=== PATIENT | female | born 1935 | race Caucasian/White ===

== ENCOUNTER 2016-10-26 11:18 | Inpatient (IN) | payer OTHER, MEDICARE ==
[2016-10-26] MEDS ORDERED: NS 1,000 ML IV ONE (12:01)
--- NOTE | 2016-10-26 12:08 | CPEKG ---
Heart Rate: 168 RR Interval: 357 QRSD Interval: 112 QT Interval: 272 QTC Interval: 455 QRS [place]ber: 15 T Wave Melber: 197 EKG Severity - ABNORMAL ECG - EKG Impression: ATRIAL FIBRILLATION WITH RAPID V-RATE EKG Impression: NONSPECIFIC INTRAVENTRICULAR CONDUCTION DELAY EKG Impression: ANTERIOR INFARCT, AGE INDETERMINATE Electronically Signed By: Pavan Reyes 26-Oct-2016 15:51:41
[2016-10-26 12:21] LABS: % IMMATURE GRANULYOCYTES 0.3 % (0.0-1.1); ABSOLUTE IMMATURE GRANULOCYTES 0.02 10^3/uL (0.00-0.10); ADD DIFF? NO; ADD MORPH? NO; ADD SCAN? NO; ATYPICAL LYMPHOCYTE FLAG 0 (0-99); FRAGMENT RBC FLAG 0 (0-99); HEMATOCRIT 41.7 % (38.0-47.0); HEMOGLOBIN 13.9 g/dL (12.6-16.3); LEFT SHIFT FLG 0 (0-99); LIPEMIA HEMOLYSIS FLAG 80 (0-99); MEAN CELL HEMOGLOBIN 31.1 pg (27.9-34.1); MEAN CELL HEMOGLOBIN CONCENTR. 33.3 g/dL (32.4-36.7); MEAN CELL VOLUME 93.3 fL (81.5-99.8); PLATELET CLUMPS FLAG 0 (0-99); PLATELET COUNT 226 10^3/uL (150-400); RED BLOOD CELL COUNT 4.47 10^6/uL (4.18-5.33); RED CELL DISTRIBUTION WIDTH 15.8 % (11.5-15.2)
--- NOTE | 2016-10-26 12:21 | EDPHY ---
HPI/HX/ROS/PE/MDM Narrative: Chief complaint: Shortness of breath HPI: 81-year-old female with a history of diabetes he has been having episodes of shortness of breath intermittently for the last 5 weeks. She had an episode before that last about 4 days. At that time she noted that her blood sugar has been up to about 200 for about 2 days. Two weeks ago she was seen by her primary care physician in who found no pertinent findings. She is presenting today with worsening shortness of breath on exertion and fatigue for the last 3-4 days. Has had a mild nonproductive cough. No chest pain. No fevers or chills. No nausea or vomiting. No abdominal pain. The does not have a history of the same. States she is not having had any cardiac problems. ROS: 10 point Review of Systems is negative except as noted in the HPI. Past medical history: Diabetes, hypertension Medications: Tradjenta, glipizide, Lotrel, Lipitor, vitamin-D Allergies: No known drug allergies Physical exam: Gen: Awake, Alert, No Distress HEENT: Nose: no rhinorrhea Eyes: PERRLA, EOMI Mouth: Moist mucosa Neck: Supple, no JVD Chest: nontender, lungs clear to auscultation, diminished at the bases Heart: Tachycardic, irregularly irregular Abd: Soft, non-tender, no guarding Back: no CVA tenderness, no midline tenderness Ext: no edema, non-tender Skin: no rash Neuro: CN II-XII intact, Sensation grossly intact, Strength 5/5 in bilateral upper and lower extremities ED Course: EC atrial fibrillation with a rapid ventricular response with a rate of 168. Respiratory course. 81-year-old female with a history of diabetes no coronary disease presenting with 3 days of shortness of breath. She is tachycardic to the 1 50s to 170s and irregular here consistent with atrial fibrillation with rapid ventricular response. ECG confirms this. She has no gross findings of acute heart failure at this time. Will check electrolytes, will give IV diltiazem bolus followed by drip. She will certainly require admission to PCU for rate control and further evaluation. Electrolytes show mild elevation in BUN and creatinine, troponin is 0.03. CBC is normal. Patient's heart rate is improved with diltiazem bolus. Blood sugars 200. I have discussed with Dr. Verde, hospitalist. They will plan to admit to the PCU for further evaluation. Patient has not yet been able to provide a urinalysis which is pending at the time of admission. MDM: 81-year-old female presenting in atrial fibrillation with a rapid ventricular response. Patient to be admitted to the PCU for rate control and further evaluation. I am awaiting urinalysis at this time. She has some mild renal insufficiency, hyperglycemic 200. Troponin is 0.03 at this time. - Data Points Laboratory Results: 10/26/16 12:09 WBC Pending RBC Pending Hgb Pending Hct Pending MCV Pending MCH Pending MCHC Pending RDW Pending Plt Count Pending MPV Pending Neut % (Auto) Pending Lymph % (Auto) Pending [place] % (Auto) Pending Eos % (Auto) Pending Baso % (Auto) Pending Nucleat RBC Rel Count Pending Absolute Neuts (auto) Pending Absolute Lymphs (auto) Pending Absolute Monos (auto) Pending Absolute Eos (auto) Pending Absolute Basos (auto) Pending Absolute Nucleated RBC Pending Immature Gran % Pending Immature Gran # Pending Sodium Pending Potassium Pending Chloride Pending Carbon Dioxide Pending Anion Gap Pending BUN Pending Creatinine Pending Estimated GFR Pending Glucose Pending Calcium Pending Troponin I Pending Medications Given: Discontinued Medications Sodium Chloride (Ns) 1,000 mls @ 0 mls/hr IV ONCE ONE PRN Reason: Wide Open Stop: 10/26/16 12:02 Last Admin: 10/26/16 12:17 Dose: 1,000 mls General Time Seen by Provider: 10/26/16 12:13 Initial Vital Signs: Initial Vital Signs Temperature (C) 36.3 C 10/26/16 11:21 Heart Rate 136 H 10/26/16 11:21 Respiratory Rate 16 10/26/16 11:21 Blood Pressure 160/112 H 10/26/16 11:21 O2 Sat (%) 94 10/26/16 11:21 O2 Delivery Mode Nasal Cannula O2 (L/minute) 2 Allergies/Adverse Reactions: No Known Allergies Allergy (Verified 03/19/12 12:39) Home Medications: Medication Instructions Recorded AMLODIPINE BESYLATE/BENAZEPRIL 1 each PO HS 03/19/12 [Lotrel 10-20 mg] Atorvastatin Calcium [Lipitor 40 40 mg PO HS 03/19/12 mg (RX)] Cholecalciferol (Vitamin D3) 5,000 unit PO HS 03/19/12 [Vitamin D3] Ibuprofen [Advil] 400 mg PO HS 03/19/12 C/E/Zn/Cu/OM3/DHA/EPA/LUT/ZEAX 1 each PO HS 10/26/16 [Preservision Areds 2 Softgel] Linagliptin [Tradjenta] 5 mg PO HS 10/26/16 glipiZIDE [Glipizide] 5 mg PO BID 10/26/16 Departure - Departure Disposition: [facility] Acute Clinical Impression: Atrial fibrillation with rapid ventricular response Condition: Fair
[2016-10-26] MEDS ORDERED: DILTIAZEM 25 MG/5 ML VIAL IVP ONE ×2 (12:36→12:41)
[2016-10-26] MEDS ORDERED: DILTIAZEM 125 MG in D5W 125 ML IV ONE (12:41)
[2016-10-26 12:54] LABS: ANION GAP 18 mEq/L (8-16); CALCIUM 9.6 mg/dL (8.5-10.4); CARBON DIOXIDE 16 mEq/l (22-31); CHLORIDE 107 mEq/L (97-110); CREATININE 1.2 mg/dL (0.6-1.0); GLOMERULAR FILTRATION RATE 43; GLUCOSE 213 mg/dL (70-100); POTASSIUM 4.1 mEq/L (3.5-5.2); SODIUM 141 mEq/L (134-144)
[2016-10-26 13:05] LABS: TROPONIN I 0.034 ng/mL (0-0.034)
--- NOTE | 2016-10-26 13:35 | DX ---
PA and Lateral Chest Clinical Indications: Shortness of breath and rapid heart rate in an 81-year-old female. Comparison: None. Findings: No focal pulmonary consolidation is identified. Peribronchial thickening is noted.. There i s hyperexpansion seen with flattening of the hemidiaphragms noted. The heart is enlarged and there is mild pulmonary venous redistribution. A moderate right pleural eff usion is suspected and there is a probable minimal left pleural effusion. Impression: 1. Suspect congestive heart failure with associated pleural effusion, right greater than left 2. Hyperexpansion and peribronchial thickening suggest airways disease, possible chronic bronchitis..
[2016-10-26 14:01] LABS: COLOR YELLOW; LEUKOCYTE ESTERASE,URINE 2+ (NEGATIVE); NITRITE,URINE POSITIVE (NEGATIVE)
[2016-10-26 14:20] LABS: BACTERIA 4+ /hpf (NONE SEEN); MUCUS TRACE /lpf (NONE-1+); WBC,URINE 50-182 /hpf (0-3)
[2016-10-26] MEDS ORDERED: ONDANSETRON DISINTEGRATING 4 MG TAB PO PRN (14:26)
[2016-10-26] MEDS ORDERED: ONDANSETRON 4 MG/2 ML VIAL IVP PRN (14:26)
[2016-10-26] MEDS ORDERED: ACETAMINOPHEN 325 MG TAB PO PRN (14:26)
[2016-10-26] MEDS ORDERED: DILTIAZEM 125 MG in D5W 125 ML IV SCH (15:00)
--- NOTE | 2016-10-26 16:13 | GHP ---
[f rep st] HISTORY AND PHYSICAL DATE OF ADMISSION: 10/26/2016 CHIEF COMPLAINT: Shortness of breath. HISTORY OF PRESENT ILLNESS: An 81-year-old female with a history of hypertension and diabetes, who p resents with progressing shortness of breath per her report over the course of the preceding 3 weeks. Patient describes having an upper respiratory infection with a nonproductive cough before Agata time. The cough has persisted. She was evaluated in the outpatient setting and thought to have a re solving URI. Patient reports then that her shortness of breath, particularly with exertion and when l diamond flat, got markedly worse and therefore, presented to the emergency department for evaluation. I n the ED, the patient is denying any active chest pain or palpitations. Reports slight improvement i n her shortness of breath. Denies any nausea, vomiting, diarrhea, dysuria, hematuria, lower extremit y edema, new rashes. Does describe a silverio dry scratchy throat that she has experienced with this u pper respiratory infection. Denies any specific fevers or chills. PAST MEDICAL HISTORY: 1. Hypertension. 2. Diabetes mellitus. 3. Hyperlipidemia. SOCIAL HISTORY: Patient is , lives with her , originally from [facility]. Does not s moke does. Does no longer drink alcohol. Does not use illicit drugs. FAMILY HISTORY: Unknown. The patient was cared for by a surrogate provider. She does not know her parents' history. ADVANCED DIRECTIVES: Patient is full cor, full tube. Her would be her medical decision-make r. REVIEW OF SYSTEMS: A 10-point review of systems is negative with the exception of that reported in t he HPI. PHYSICAL EXAMINATION: VITAL SIGNS: Blood pressure 139/93, heart rate 178 in the emergency departmen t, respiratory rate 16, 91% on 2 L, 36.7. GENERAL: This is a very pleasant-appearing elderly female , lying comfortably in bed. HEENT: Notable for moist mucous membranes. Eyes negative for any icter us. CARDIAC: Patient's is irregularly irregular and tachycardic. PULMONARY: Patient has diminishe d breath sounds on the right, otherwise minimal rales at bilateral bases. Clear to auscultation supe riorly. GASTROINTESTINAL: Positive bowel sounds. Abdomen is soft and nontender to palpation in all 4 quadrants. MUSCULOSKELETAL: Negative for any lower extremity edema. SKIN: Negative for any jakob hes. NEUROLOGIC: Patient is alert and oriented x3. PSYCHIATRIC: She is pleasant and cooperative o n interview and examination. DATA: White count is 7.1, hematocrit 41.7, platelets of 226. Creatinine 1.2, baseline is 1.0. BUN is 27, blood glucose of 213. Troponin 0.034. EKG, which I personally reviewed and interpreted, shows atrial fibrillation with rates in the 150s wi thout acute changes. ASSESSMENT AND PLAN: 1. This is an 81-year-old female presenting with atrial fibrillation with acute rapid ventricular re sponse. The patient's heart rates are in the 170s. Blood pressures are stable. The patient has bee n initiated on a diltiazem drip. Have consulted Cardiology, Dr. Yeager, ordered a transthoracic ech ocardiogram. Based on the patient's laboratories, I am going to make sure she has received IV fluids . If not, give her a small bolus. Will hold her normal home antihypertensives while on the diltiaze m drip. Have initiated the conversation about the patient's elevated [id number] score and her cand idacy for full-dose anticoagulation. Will not commit to a treatment choice this evening, and suspect Dr. Yeager will be consulted and interested in intervening on this patient. 2. Diabetes. Can continue patient's glipizide and cover with sliding scale insulin as needed. 3. Hyperlipidemia. Patient is not actively on medication treatment. Can check fasting lipids in th e morning. 4. Prophylaxis. Lovenox prophylaxis. 5. Diet. Cardiac. DISPOSITION: I expect greater than 2-midnights as the patient is presenting with atrial fibrillation with RVR, new hypoxia, likely requiring intervention. Will follow her progress on a diltiazem drip. I discussed the case with Dr. Yeager. He will consult this afternoon. /[id number]/MODL
--- NOTE | 2016-10-26 17:28 | ECHO ---
[id number] + + [address] : : [place] [address] : : [phone] + + Adult Echocardiographic Report + --------+ :Name: Cookie CHAO Date: 10/26/2016 03:19 PM : : Hospital Admission Number: [id number] Locat ion: 220: :: 1935 Gender: Female Height: 65 in : :Age: 81 yrs Race: WH Weight: 193 l b : :Reason For Study: SOB and palpitations : : BSA: 1.9 mete rs2 : :History: No previous : + --------+ MMode/2D Measurements & Calculations IVSd: 1.4 cm LVIDd: 3.6 cm FS: 49.3 % LVOT diam: 1.4 cm LVPWd: 1.5 cm LVIDs: 1.8 cm EDV(Teich): 54.6 ml LVOT area: 1.5 cm2 ESV(Teich): 10.1 ml EF(Teich): 81.5 % Normal Measurement Values: + + :LVIDd (3.5-5.7cm) IVSd (0.6-1.1cm) LVPWd (0.6-1.1cm) Aortic Root (2.0-3.7cm)Left Atrium (1.5-4.0cm): :LV Vol(d) (76-115ml) LV Vol(s) (29-48ml) Ejec Fraction (50-65%)PV Donald (0.6- 1.2m/s) TV Donald (0.4-1.0m/s) : :MV E Donald (0.8-1.0m/s)MV A Donald (0.3-1.0m/s)LVOT Donald (0.7-1.2m/s) Asc Ao Donald ( 0.9-1.8m/s) : + + Doppler Measurements & Calculations MV E max donald: MV V2 mean: Ao V2 max: LV V1 max: 164.7 cm/sec 119.8 cm/sec 111.0 cm/sec 66.7 cm/sec MV dec time: MV mean PG: Ao max PG: LV V1 max P.16 sec 6.2 mmHg 4.9 mmHg 1.8 mmHg MV V2 VTI: 25.2 cm Ao mean PG: LV V1 mean PG: MVA(VTI): 0.67 cm2 4.6 mmHg 0.83 mmHg Ao V2 mean: LV V1 mean: 101.0 cm/sec 40.8 cm/sec Ao V2 VTI: 31.0 cmLV V1 VTI: 11.3 cm GRACIE(I,D): 0.55 cm2 GRACIE(V,D): 0.90 cm2 MR max donald: SV(LVOT): 17.0 ml PA V2 max: PI end-d donald: 421.3 cm/sec 93.4 cm/sec 83.6 cm/sec MR max PG: PA max P.0 mmHg 3.5 mmHg TR max donald: 323.4 cm/sec TR max P.8 mmHg RAP systole: 15.0 mmHg RVSP(TR): 56.8 mmHg Left Ventricle The left ventricle is normal in size. There is mild to moderate concentric left ventricular hypertrophy. Ejection Fraction = 50-55%. Regional wall motion abnormalities cannot be excluded due to limited visualization. Possible christine-septal hypokinesis. Right Ventricle The right ventricle is not well visualized. The right ventricular systolic function is normal. Atria The left atrium is moderately dilated. The Left Atrial Volume is 42.1 ml/m2. Right atrium not well visualized. Mitral Valve There is moderate to severe mitral annular calcification. There is no mitral valve stenosis. There is mild mitral regurgitation. Tricuspid Valve The tricuspid valve is normal in structure and function. There is no tricuspid stenosis. There is moderate tricuspid regurgitation. Right ventricular systolic pressure is 55-60mmHg. Aortic Valve There is mild to moderate aortic valve calcification. The aortic valve is trileaflet. There is no aortic stenosis. There is no aortic insufficiency. Pulmonic Valve The pulmonic valve is not well visualized. There is no pulmonic valvular stenosis. Mild pulmonic valvular regurgitation. Great Vessels The aortic root is normal size. Pericardium/Pleural There is a fat pad seen. Conclusion A complete two-dimensional transthoracic echocardiogram was performed (2D, M-mode, Doppler and color flow Doppler). The study was technically difficult. The left ventricle is normal in size. Ejection Fraction = 50-55%. Regional wall motion abnormalities cannot be excluded due to limited visualization. The right ventricle is not well visualized. The left atrium is moderately dilated. The Left Atrial Volume is 42.1 ml/m2. Right atrium not well visualized. There is moderate to severe mitral annular calcification. There is mild mitral regurgitation. There is moderate tricuspid regurgitation. Mild pulmonic valvular regurgitation. There is mild to moderate concentric left ventricular hypertrophy. There is mild to moderate aortic valve calcification. Right ventricular systolic pressure is 55-60mmHg. Possible christine-septal hypokinesis. Final Reading Physician: Richar Fletcher signed on 10/26/2016 05:27 PM Ordering Physician: Marian Euceda Referring Physician: Yamel Lebron Performed By: Antonia Mendoza
[2016-10-26] MEDS: CHOLECALCIFEROL VIT D3 1,000 UNITS TAB PO SCH (20:44)
[2016-10-26] MEDS: PRESERVISION AREDS2 FORMULA EYE VIT 1 EACH PO SCH (20:44)
[2016-10-26] MEDS: ATORVASTATIN CALCIUM 40 MG TAB PO SCH (20:44)
[2016-10-26] MEDS: AMLODIPINE BESYLATE 5/BENAZEPRIL 10MG 1 EACH CAP PO SCH (20:44)
[2016-10-26] MEDS: glipiZIDE 5 MG TAB PO SCH (20:45)
[2016-10-26] MEDS ORDERED: NON-FORMULARY NEW DRUG (Cholecalciferol (Vitamin D3) [Vitamin D3] 5,000 UNIT) PO SCH (21:00)
[2016-10-26] MEDS ORDERED: ENOXAPARIN 80 MG/0.8 ML SYR SC ONE (21:00)
[2016-10-26] MEDS ORDERED: NON-FORMULARY NEW DRUG (Amlodipine Besylate/Benazepril [Lotrel 10-20 Mg] 1 EACH) PO SCH (21:00)
[2016-10-27] MEDS ORDERED: FUROSEMIDE 20 MG/2 ML VIAL IVP ONE (04:39)
[2016-10-27 05:32] LABS: % IMMATURE GRANULYOCYTES 0.4 % (0.0-1.1); ABSOLUTE IMMATURE GRANULOCYTES 0.03 10^3/uL (0.00-0.10); ADD DIFF? NO; ADD MORPH? NO; ADD SCAN? NO; ATYPICAL LYMPHOCYTE FLAG 10 (0-99); FRAGMENT RBC FLAG 0 (0-99); HEMATOCRIT 35.6 % (38.0-47.0); HEMOGLOBIN 11.7 g/dL (12.6-16.3); LEFT SHIFT FLG 0 (0-99); LIPEMIA HEMOLYSIS FLAG 80 (0-99); MEAN CELL HEMOGLOBIN 31.2 pg (27.9-34.1); MEAN CELL HEMOGLOBIN CONCENTR. 32.9 g/dL (32.4-36.7); MEAN CELL VOLUME 94.9 fL (81.5-99.8); MEAN PLATELET VOLUME 10.9 fL (8.7-11.7); PLATELET CLUMPS FLAG 0 (0-99); PLATELET COUNT 180 10^3/uL (150-400); RED BLOOD CELL COUNT 3.75 10^6/uL (4.18-5.33); RED CELL DISTRIBUTION WIDTH 15.6 % (11.5-15.2)
[2016-10-27 05:52] LABS: ANION GAP 12 mEq/L (8-16); CALCIUM 8.8 mg/dL (8.5-10.4); CARBON DIOXIDE 18 mEq/l (22-31); CHLORIDE 112 mEq/L (97-110); CREATININE 1.1 mg/dL (0.6-1.0); GLOMERULAR FILTRATION RATE 48; GLUCOSE 98 mg/dL (70-100); POTASSIUM 3.2 mEq/L (3.5-5.2); SODIUM 142 mEq/L (134-144)
[2016-10-27 05:55] LABS: TROPONIN I 0.041 ng/mL (0-0.034)
[2016-10-27] MEDS ORDERED: ENOXAPARIN 30 MG/0.3 ML SYR SC SCH (09:00)
--- NOTE | 2016-10-27 10:03 | PDCARCONS ---
Cardiology Consult Reason for Consult: Atrial fibrillation Chief Complaint: Progressive dyspnea Requesting Physician: Dr. Euceda History of Present Illness: 81 year-old female with history of hypertension, hyperlipidemia, type 2 DM, chronic renal insufficiency presented to ED yesterday with symptoms of progressively worsening dyspnea since around Agata. The symptoms have waxed and waned but started becoming much worse over the weekend. She has previously been evaluated by her PCP and symptoms were thought to be viral in nature. EKG upon presentation to ED showed atrial fibrillation with rapid ventricular rates. This is a first time documented episode. She has been treated with a diltiazem drip and Lovenox anticoagulation overnight. She remains in atrial fibrillation with ventricular rates between 100-100 bpm. She is resting comfortably at this time with her family in the room. Laboratory studies are remarkable for ntBNP 8190, normal CBC with normal WBC, chemistry panel remarkable for K 4.1-->3.2, stable serum Cr 1.1-1.2, minimally elevated troponin of 0.041. UA is indicative of UTI with 4+ bacteruria. Transthoracic echocardiogram shows LVEF 50-55% with possible anteroseptal hypokinesis, mild-moderate LVH, moderate-severe left atrial enlargement, sclerotic mitral valve with mild regurgitation, moderate TR with estimated pulmonary artery pressure of 50-60 mmHg. History Information - Allergies/Home Medication List Allergies/Adverse Reactions: No Known Allergies Allergy (Verified 03/19/12 12:39) Home Medications: AMLODIPINE BESYLATE/BENAZEPRIL [Lotrel 10-20 mg] 1 each PO HS 03/19/12 [Last Taken 10/25/16] Atorvastatin Calcium [Lipitor 40 mg (RX)] 40 mg PO HS 03/19/12 [Last Taken 10/25] Cholecalciferol (Vitamin D3) [Vitamin D3] 5,000 unit PO HS 03/19/12 [Last Taken 10/25/16] Ibuprofen [Advil] 400 mg PO HS 03/19/12 [Last Taken 10/25/16] C/E/Zn/Cu/OM3/DHA/EPA/LUT/ZEAX [Preservision Areds 2 Softgel] 1 each PO HS 10/26 [Last Taken 10/25/16] Diclofenac Sodium [Voltaren Gel (*)] 2 g TP QID 10/26/16 [Last Taken Unknown] Linagliptin [Tradjenta] 5 mg PO HS 10/26/16 [Last Taken 10/25/16] glipiZIDE [Glipizide] 5 mg PO BID 10/26/16 [Last Taken 10/26/16 08:00] I have personally reviewed and updated: medical history, social history - Past Medical History diabetes type 2, hypertension, hyperlipidemia - Surgical History Reports: no pertinent surgical hx - Social History Smoking Status: Never smoked Alcohol Use: None Drug Use: None Cardiac History - Cardiac History Cardiac Risk Factors: hypertension (>140/90), lipidemia, diabetes mellitus, age > 65 Age in Years: 75 or older Sex: Female Congestive Heart Failure History: No Hypertension History: Yes Stroke/TIA/Thromboembolism History: No Vascular Disease History: No Diabetes Mellitus: Yes [id number] Score: 5] Physical Exam Temp Pulse Resp BP Pulse Ox 36.4 C 103 H 24 H 113/74 92 10/27/16 07:53 10/27/16 07:53 10/27/16 07:53 10/27/16 07:53 10/27/16 07:53 O2 (L/minute) 4.5 Constitutional: no apparent distress, appears nourished, not in pain Cardiovascular: irregularly irregular, tachycardia, No systolic murmur, No edema Peripheral Pulses: 2+: dorsalis-pedis (R), dorsalis-pedis (L) Respiratory: no respiratory distress, no rales or rhonchi, clear to auscultation Gastrointestinal: normoactive bowel sounds, soft, non-tender abdomen, no palpable masses Neurologic: AAOx3 Psychiatric: interacting appropriately, not anxious, not encephalopathic, thought process linear Lab and Imaging 10/27/16 05:11 10/27/16 05:11 WBC 6.72 10^3/uL (3.80-9.50) 10/27/16 05:11 RBC 3.75 10^6/uL (4.18-5.33) L 10/27/16 05:11 Hgb 11.7 g/dL (12.6-16.3) L 10/27/16 05:11 Hct 35.6 % (38.0-47.0) L 10/27/16 05:11 MCV 94.9 fL (81.5-99.8) 10/27/16 05:11 MCH 31.2 pg (27.9-34.1) 10/27/16 05:11 MCHC 32.9 g/dL (32.4-36.7) 10/27/16 05:11 RDW 15.6 % (11.5-15.2) H 10/27/16 05:11 Plt Count 180 10^3/uL (150-400) 10/27/16 05:11 MPV 10.9 fL (8.7-11.7) 10/27/16 05:11 Neut % (Auto) 70.6 % (39.3-74.2) 10/27/16 05:11 Lymph % (Auto) 17.3 % (15.0-45.0) 10/27/16 05:11 [place] % (Auto) 7.0 % (4.5-13.0) 10/27/16 05:11 Eos % (Auto) 4.3 % (0.6-7.6) 10/27/16 05:11 Baso % (Auto) 0.4 % (0.3-1.7) 10/27/16 05:11 Nucleat RBC Rel Count 0.0 % (0.0-0.2) 10/27/16 05:11 Absolute Neuts (auto) 4.74 10^3/uL (1.70-6.50) 10/27/16 05:11 Absolute Lymphs (auto) 1.16 10^3/uL (1.00-3.00) 10/27/16 05:11 Absolute Monos (auto) 0.47 10^3/uL (0.30-0.80) 10/27/16 05:11 Absolute Eos (auto) 0.29 10^3/uL (0.03-0.40) 10/27/16 05:11 Absolute Basos (auto) 0.03 10^3/uL (0.02-0.10) 10/27/16 05:11 Absolute Nucleated RBC 0.00 10^3/uL (0-0.01) 10/27/16 05:11 Immature Gran % 0.4 % (0.0-1.1) 10/27/16 05:11 Immature Gran # 0.03 10^3/uL (0.00-0.10) 10/27/16 05:11 Sodium 142 mEq/L (134-144) 10/27/16 05:11 Potassium 3.2 mEq/L (3.5-5.2) L 10/27/16 05:11 Chloride 112 mEq/L (97-110) H 10/27/16 05:11 Carbon Dioxide 18 mEq/l (22-31) L 10/27/16 05:11 Anion Gap 12 mEq/L (8-16) 10/27/16 05:11 BUN 25 mg/dL (7-23) H 10/27/16 05:11 Creatinine 1.1 mg/dL (0.6-1.0) H 10/27/16 05:11 Estimated GFR 48 10/27/16 05:11 Glucose 98 mg/dL (70-100) 10/27/16 05:11 POC Glucose 104 mg/dL (70-100) H 10/27/16 07:43 Calcium 8.8 mg/dL (8.5-10.4) 10/27/16 05:11 Troponin I 0.041 ng/mL (0-0.034) H 10/27/16 05:11 NT-Pro-B Natriuret Pep 8190 pg/mL (0-450) H 10/26/16 12:09 Urine Color YELLOW 10/26/16 13:47 Urine Appearance MODERATELY TURBID 10/26/16 13:47 Urine pH 5.0 (5.0-7.5) 10/26/16 13:47 Ur Specific [place] 1.020 (1.002-1.030) 10/26/16 13:47 Urine Protein 2+ (NEGATIVE) H 10/26/16 13:47 Urine Ketones 1+ (NEGATIVE) H 10/26/16 13:47 Urine Blood 1+ (NEGATIVE) H 10/26/16 13:47 Urine Nitrate POSITIVE (NEGATIVE) H 10/26/16 13:47 Urine Bilirubin NEGATIVE (NEGATIVE) 10/26/16 13:47 Urine Urobilinogen NEGATIVE EU (0.2-1.0) 10/26/16 13:47 Ur Leukocyte Esterase 2+ (NEGATIVE) H 10/26/16 13:47 Urine RBC 5-10 /hpf (0-3) H 10/26/16 13:47 Urine WBC 50-182 /hpf (0-3) H 10/26/16 13:47 Ur Epithelial Cells TRACE /lpf (NONE-1+) 10/26/16 13:47 Urine Bacteria 4+ /hpf (NONE SEEN) H 10/26/16 13:47 Hyaline Casts 5-15 /lpf (0-1) 10/26/16 13:47 Urine Mucus TRACE /lpf (NONE-1+) 10/26/16 13:47 Urine Glucose 1+ (NEGATIVE) H 10/26/16 13:47 A/P Assessment: 1. Atrial fibrillation w/ rapid ventricular rates, first documented episode. Suspect this has been ongoing since at least October 13 and possibly since . LVEF is preserved at 50-55% with possible anteroseptal hypokinesis. Considered non-valvular at this time. Currently adequately rate controlled on diltiazem iv gtt with Lovenox anticoagulation. CHADS-VASc = 5. RUSSELL/ cardioversion planned for today. 2. UTI. ? acute vs. chronic. 3. Moderate-severe pulmonary hypertension with moderate TR. 4. 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 There is moderate left atrial enlargement. 5. Hypertension, controlled on medications. 6. Type 2 diabetes, treated w/ oral medications. 7. Hyperlipidemia, on statin therapy. 8. Unknown CAD status. Plan: 1. Keep NPO can continue diltiazem iv gtt. 2. RUSSELL/cardioversion planned for today with Dr. Yeager. 3. Further medical recommendation pending results of above.
[2016-10-27] MEDS: glipiZIDE 5 MG TAB PO SCH ×2 (10:18→21:10)
[2016-10-27] MEDS ORDERED: NS 1,000 ML IV SCH (10:30)
[2016-10-27] MEDS ORDERED: MAGNESIUM SULF 2 GM/WATER 50 ML IV ONE (12:46)
[2016-10-27] MEDS ORDERED: PROTOCOL POTASSIUM 1 DOSE MISC PRN (12:57)
[2016-10-27] MEDS ORDERED: PROTOCOL MAGNESIUM 1 DOSE IV PRN (12:57)
[2016-10-27] MEDS ORDERED: ATROPINE SULFATE 1 MG/10 ML SYR ONE (13:46)
[2016-10-27] MEDS: POTASSIUM CL 20 MEQ TAB PO SCH (13:59)
[2016-10-27 14:00] LABS: INR 1.17 (0.83-1.16); PROTIME(PATIENT) 14.9 SEC (12.0-15.0)
[2016-10-27] MEDS: ENOXAPARIN 80 MG/0.8 ML SYR SC SCH ×2 (14:52→21:10)
[2016-10-27] MEDS ORDERED: MIDAZOLAM 2 MG/2 ML VIAL ONE (15:12)
[2016-10-27] MEDS ORDERED: PROPOFOL 200 MG/20 ML VIAL ONE (15:12)
--- NOTE | 2016-10-27 15:50 | CPEKG ---
Heart Rate: 62 RR Interval: 968 P-R Interval: 200 QRSD Interval: 120 QT Interval: 496 QTC Interval: 504 P [place]: 26 QRS [place]: 14 T Wave [place]: 235 EKG Severity - ABNORMAL ECG - EKG Impression: SINUS RHYTHM EKG Impression: LEFT BUNDLE BRANCH BLOCK EKG Impression: LOW VOLTAGE IN FRONTAL LEADS Electronically Signed By: Gorge Cantu 27-Oct-2016 18:16:38
--- NOTE | 2016-10-27 16:11 | HOSPPROG ---
Hospitalist Progress Note Assessment/Plan: # Acute atrial fibrillation with rapid ventricular response- patient on diltiazem drip overnight with improved rate control telemetry (personally reviewed and interpreted) AFib in the low 100- down from admit heart rate in the 170s oxygen saturations 94% on 3 L Chads-vasc 5- appropriate for anticoagulation - cont diltiazem gtt - NPO for cardioversion - given lovenox 80mg x1 overnight - ongoing anticoagulation per Dr. Yeager # HTN - continue home medications - as she transitions off dilt gtt # Asymptomatic pyuria - pt without WBC elevation, fever or sx - send urine cx - no empiric abx at this time # DM - BS 98-220 - cont home glipizide - SSI if sugars to high # proph - lovenox BID # diet- npo # disposition - > 2 MN as requiring IV meds for rate control and cardioversion I have discussed the case with cardiology pt will go got cardioversion today Subjective: denies dysuria Objective: Vital Signs Temp Pulse Resp BP Pulse Ox 36.4 C 141 H 20 101/65 91 L 10/27/16 11:38 10/27/16 11:38 10/27/16 11:38 10/27/16 11:38 10/27/16 11:38 Laboratory Results 10/27/16 05:11 10/27/16 05:11 10/26/16 10/27/16 10/28/16 05:59 05:59 05:59 Intake Total 1390 Balance 1390 PT 14.9 SEC (12.0-15.0) 10/27/16 13:30 INR 1.17 (0.83-1.16) H 10/27/16 13:30 - Physical Exam Constitutional: appears nourished Eyes: anicteric sclera Ears, Nose, Mouth, Throat: moist mucous membranes Cardiovascular: irregularly irregular, tachycardia Respiratory: no respiratory distress, No expiratory wheeze, No inspiratory crackles Gastrointestinal: normoactive bowel sounds, soft, non-tender abdomen Genitourinary: no bladder fullness Skin: warm, normal color Neurologic: AAOx3 Psychiatric: interacting appropriately, not anxious Lymph, Heme, Immunologic: no cervical LAD ICD10 Worksheet Patient Problems: Problems Problem Status Diagnosed Atrial fibrillation with rapid ventricular response Acute
--- NOTE | 2016-10-27 16:48 | SUROPNOTE ---
AVRIL Operative Report - Surgery Date of procedure: 10/27/16 Indication: This patient is an 81 year old woman, with a history of hypertension , diabetes, and hyperlipidemia, presenting with progressive shortness of breath over the last three weeks. She was evaluated in the emergency department and was appreciated to be in atrial fibrillation with rapid ventricular rate in the 170s. She is not anticoagulated. Plan for transesophageal echocardiogram and probable cardioversion. Procedures performed: 1. Transesophageal echocardiogram 2. Cardioversion Description of procedure: Risks, benefits, and alternatives were discussed. Informed consent was obtained. Anesthesia was performed by Dr. Bloom with propofol. Patient underwent transesophageal echocardiography which did not show evidence of interatrial or appendage thrombus. There was no evidence of thrombus. Ventricular function was normal. Patient then received a 300 joule biphasic synchronized shock using hands-off pads converting to sinus rhythm. Impression: 1. Successful cardioversion of atrial fibrillation to normal sinus rhythm. Plan: 1. Start Amiodarone regimen 2. Start anticoagulation with Pradaxa 3. As an outpatient, arrange ZIO monitor, repeat echocardiogram in sinus rhythm , nuclear stress test, and overnight oximetry study. Portions of this report were documented by a medical collections representative. I have reviewed this report and agree with the documentation. Report scribed for Dr. Pavan Yeager. Report scribed by Kaylie Sarah.
[2016-10-27] MEDS: DICLOFENAC SODIUM TP SCH ×2 (17:49→21:11)
[2016-10-27 19:04] LABS: MAGNESIUM 1.6 mg/dL (1.6-2.3)
[2016-10-27] MEDS ORDERED: MAGNESIUM SULF 1 GM/DEXTROSE 100 ML IV ONE (20:19)
[2016-10-27] MEDS: CHOLECALCIFEROL VIT D3 1,000 UNITS TAB PO SCH (21:10)
[2016-10-27] MEDS: AMLODIPINE BESYLATE 5/BENAZEPRIL 10MG 1 EACH CAP PO SCH (21:10)
[2016-10-27] MEDS: ATORVASTATIN CALCIUM 40 MG TAB PO SCH (21:10)
[2016-10-27] MEDS: PRESERVISION AREDS2 FORMULA EYE VIT 1 EACH PO SCH (21:11)
[2016-10-27] MEDS: AMIODARONE HCL 200 MG TAB PO SCH (22:45)
[2016-10-28 04:58] LABS: HEMATOCRIT 36.1 % (38.0-47.0); MEAN CELL HEMOGLOBIN 31.4 pg (27.9-34.1); MEAN CELL HEMOGLOBIN CONCENTR. 33.2 g/dL (32.4-36.7); MEAN CELL VOLUME 94.5 fL (81.5-99.8); RED BLOOD CELL COUNT 3.82 10^6/uL (4.18-5.33); RED CELL DISTRIBUTION WIDTH 15.7 % (11.5-15.2)
[2016-10-28 05:14] LABS: ANION GAP 9 mEq/L (8-16); CALCIUM 8.8 mg/dL (8.5-10.4); CARBON DIOXIDE 22 mEq/l (22-31); CHLORIDE 114 mEq/L (97-110); CREATININE 1.2 mg/dL (0.6-1.0); GLOMERULAR FILTRATION RATE 43; GLUCOSE 53 mg/dL (70-100); MAGNESIUM 1.8 mg/dL (1.6-2.3); POTASSIUM 3.3 mEq/L (3.5-5.2); SODIUM 145 mEq/L (134-144)
[2016-10-28] MEDS: DICLOFENAC SODIUM TP SCH (06:24)
[2016-10-28] MEDS ORDERED: POTASSIUM CL 10 MEQ TAB PO ONE (07:13)
[2016-10-28] MEDS ORDERED: MAGNESIUM SULF 1 GM/DEXTROSE 100 ML IV ONE (07:20)
[2016-10-28 08:41] VITALS: PULSE 73
--- NOTE | 2016-10-28 09:06 | CPEKG ---
Heart Rate: 69 RR Interval: 870 P-R Interval: 200 QRSD Interval: 110 QT Interval: 460 QTC Interval: 493 P Achille: 39 QRS Achille: 23 T Wave Achille: -77 EKG Severity - ABNORMAL ECG - EKG Impression: SINUS RHYTHM EKG Impression: INCOMPLETE LEFT BUNDLE BRANCH BLOCK EKG Impression: LOW VOLTAGE IN FRONTAL LEADS Electronically Signed By: Gorge Cantu 28-Oct-2016 19:31:49
[2016-10-28] MEDS: ENOXAPARIN 80 MG/0.8 ML SYR SC SCH (09:17)
[2016-10-28] MEDS: glipiZIDE 5 MG TAB PO SCH (09:18)
[2016-10-28] MEDS: POTASSIUM CL 20 MEQ TAB PO SCH (09:18)
[2016-10-28] MEDS: AMIODARONE HCL 200 MG TAB PO SCH (09:19)
--- NOTE | 2016-10-28 10:48 | SOAPPROG ---
WING Progress Note Assessment/Plan: Assessment: 1. 1st episode of atrial fibrillation now in sinus rhythm status post cardioversion. Oral amiodarone loading started last night. 2. Yang-vasc score of 5. Currently on Lovenox. 3. Creatinine clearance of 53 mL/minute 4. Pulmonary hypertension 5. Hyperlipidemia 6. Diabetes 7. Possible segmental wall motion abnormality. Patient does have left bundle branch block 8. Left ventricular hypertrophy Plan: Outpatient adenosine 1. From a cardiovascular standpoint patient is safe to be discharged 2. Recommend short course of oral amiodarone 400 mg twice daily for 5 days, 200 mg twice daily for 1 week and then 200 mg daily for at least 2 weeks. Will attempt to discontinue amiodarone as an outpatient. Patient may need to be transitioned to a different oral antiarrhythmic drug. She may be a good candidate for dronedarone. 3. Oral anticoagulation. This was discussed with the patient and family. Recommend Pradaxa 150 mg twice daily. 4. Early outpatient follow-up. We will arrange this in our office for next week. November 01 at 11:45 a.m. with Del Calderon at our [facility] office. [address] 5. Likely repeat echocardiogram as an outpatient in normal rhythm for further assessment of left ventricular and valvular function. 6. Outpatient ZIO monitor 7. outpatient nuclear imaging stress test 8. Nocturnal oxygen saturation monitoring 10/28/16 10:44 10/28/16 10:46 10/28/16 10:47 Objective: Vital Signs Temp Pulse Resp BP Pulse Ox 97 F 73 22 H 116/67 92 10/28/16 08:00 10/28/16 08:00 10/28/16 08:00 10/28/16 08:00 10/28/16 08:00 Laboratory Results 10/28/16 04:30 10/28/16 04:30 10/27/16 10/28/16 10/29/16 05:59 05:59 05:59 Intake Total 1390 125 Balance 1390 125 PT 14.9 SEC (12.0-15.0) 10/27/16 13:30 INR 1.17 (0.83-1.16) H 10/27/16 13:30 ICD10 Worksheet Patient Problems: Problems Problem Status Diagnosed Atrial fibrillation with rapid ventricular response Acute
--- NOTE | 2016-10-28 11:19 | HOSPPROG ---
Hospitalist Progress Note Assessment/Plan: Acute atrial fibrillation with rapid ventricular response- cardioverted amio pradaxa outpt follow up hypoxia: hypoxic at night check ambulatory RA sat HTN - continue home medications - as she transitions off dilt gtt Asymptomatic pyuria - pt without WBC elevation, fever or sx no sx DM - BS 98-220 - cont home glipizide - SSI if sugars to high proph - lovenox BID # diet- npo # disposition home today > 30 minutes Subjective: cardioverted Objective: Vital Signs Temp Pulse Resp BP Pulse Ox 36.1 C 73 22 H 116/67 92 10/28/16 08:00 10/28/16 08:00 10/28/16 08:00 10/28/16 08:00 10/28/16 08:00 Laboratory Results 10/28/16 04:30 10/28/16 04:30 10/27/16 10/28/16 10/29/16 05:59 05:59 05:59 Intake Total 1390 125 Balance 1390 125 PT 14.9 SEC (12.0-15.0) 10/27/16 13:30 INR 1.17 (0.83-1.16) H 10/27/16 13:30 - Physical Exam Constitutional: no apparent distress, appears nourished Eyes: PERRL, anicteric sclera Ears, Nose, Mouth, Throat: moist mucous membranes, hearing normal, ears appear normal Cardiovascular: regular rate and rhythym, no murmur, rub, or gallop, systolic murmur Respiratory: no respiratory distress, no rales or rhonchi Gastrointestinal: normoactive bowel sounds, soft, non-tender abdomen Genitourinary: No serrano in urethra Skin: warm, normal color Musculoskeletal: full muscle strength, no muscle tenderness Neurologic: AAOx3, sensation intact bilaterally Psychiatric: interacting appropriately, not anxious ICD10 Worksheet Patient Problems: Problems Problem Status Diagnosed Atrial fibrillation with rapid ventricular response Acute
[2016-10-28 11:32] VITALS: BP 145/63; TEMP 97.6
[2016-10-28 17:04] VITALS: RESP 18; O2SAT 91
--- NOTE | 2016-10-28 19:26 | GDS ---
[f rep st] DISCHARGE SUMMARY DISCHARGE DIAGNOSES: 1. Atrial fibrillation status post cardioversion. 2. Hypoxia attributed to diastolic heart failure. 3. Hypertension. 4. Diabetes. PROCEDURES DURING ADMISSION: Transesophageal echocardiography cardioversion performed by Dr. Pavan Yeager. HISTORY: Please see admission history and physical by Dr. Marian Euceda, as well as Cardiology consu ltation by Dr. Travis Fortune. HOSPITAL COURSE: The patient presented with this shortness of breath. She was found to be in atrial fibrillation with rapid ventricular rate. She had an echocardiogram showing a normal EF with pulmon jules artery pressure under direct current cardioversion. She was started on amiodarone and Pradaxa. She is discharged home. She is hypoxic with ambulation and discharged home with home oxygen. /[id number]/MODL
--- NOTE | 2016-11-10 16:37 | ECHO ---
[id number] + + [address] : : [facility] [address] : : [phone] + + Transesophageal Echocardiographic Report + --------+ :Name: Cookie CHAO Date: 10/27/2016 02:11 PM : : Hospital Admission Number: [id number] Locat ion: CVC: :: 1935 Gender: Female : :Age: 81 yrs Race: WH : :Reason For Study: Eval LV Fx : :History: Pre Cardioversion : + --------+ Doppler Measurements & Calculations TR max claudia: 302.1 cm/sec TR max P.5 mmHg RAP systole: 10.0 mmHg RVSP(TR): 46.5 mmHg Left Ventricle The left ventricular ejection fraction is normal. The rhythm is atrial fibrillation. Atria Injection of contrast documented no interatrial shunt. No left atrial mass or thrombus visualized. No thrombus is detected in the left atrial appendage. Mitral Valve There is mild to moderate mitral regurgitation. Tricuspid Valve There is moderate to severe tricuspid regurgitation. Right ventricular systolic pressure is 47mmHg. There is Doppler evidence for moderate pulmonary hypertension. Aortic Valve The aortic valve is trileaflet. There is no aortic stenosis. Conclusion A 2D transesophageal echocardiogram with color flow Doppler was performed. The left ventricular ejection fraction is normal. The rhythm is atrial fibrillation. There is mild to moderate mitral regurgitation. There is moderate to severe tricuspid regurgitation. Right ventricular systolic pressure is 47mmHg. There is Doppler evidence for moderate pulmonary hypertension. The aortic valve is trileaflet. Injection of contrast documented no interatrial shunt. No left atrial mass or thrombus visualized. No thrombus is detected in the left atrial appendage. Proceeded with successful elective DC cardioversion. Final Reading Physician: Richar Fletcher signed on 11/10/2016 04:35 PM Ordering Physician: Travis Jacome Performed By: Pavan Yeager MD
== END 2016-10-28 15:45 | disposition home or self-care (01) | DRG 309 ==
LOC: F2W 14:10
PROVIDERS: ADMIT Family Medicine; ATTEND Internal Medicine
PROC: B24BZZ4 Ultrasonography of Heart with Aorta, Transesophageal (ICD-10-PCS; principal; 2016-10-27)
PROC: 5A2204Z Restoration of Cardiac Rhythm, Single (ICD-10-PCS; principal; 2016-10-27)
DX: I48.91 Unspecified atrial fibrillation (principal); I50.30 Unspecified diastolic (congestive) heart failure; R09.02 Hypoxemia; E11.9 Type 2 diabetes mellitus without complications; I10 Essential (primary) hypertension; E78.5 Hyperlipidemia, unspecified
CPT/HCPCS: 96365; 96366; 97162-GP; 97165-GO; 97535-GO; G8978-GP-CI; G8979-GP-CH; G8987-GO-CJ; G8988-GO-CI; G8989-GO-CI; J0461; J1650; J2250; J2704; J3475

== ENCOUNTER 2016-10-29 05:49 | Observation (INO) | payer OTHER, MEDICARE ==
--- NOTE | 2016-10-29 06:00 | EDPHY ---
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 - Social History Smoking Status: Never smoked <Mariela Al - Last Filed: 10/29/16 07:00> <Mona Cage - Last Filed: 10/31/16 22:37> Time Seen by Provider: 10/29/16 05:53 HPI/ROS: HPI The patient presents brought in by ambulance for seizure which occurred just prior to arrival. The patient had a acute onset of tonic-clonic activity while at home this morning. Afterwards she was postictal and somewhat combative. When EMS arrived she was given Versed. Her glucose was 81. she is alert and oriented, ambulatory at baseline. She was discharged from the hospital yesterday after cardioversion was performed for atrial fibrillation. She is just on amiodarone and Pradaxa. She is also on home oxygen. She has no prior history of seizures REVIEW OF SYSTEMS Constitutional: No fever, no chills. Eyes: No discharge. ENT: No sore throat. Cardiovascular: No chest pain, no palpitations. Respiratory: No cough, no shortness of breath. Gastrointestinal: No abdominal pain, no vomiting. Genitourinary: No hematuria. Musculoskeletal: No back pain. Skin: No rashes. Neurological: No headache. PMHx: Atrial fibrillation status post cardioversion, diabetes Soc Hx: Lives at home PHYSICAL General Appearance: Postictal, no acute distress Eyes: Pupils equal and round no pallor or injection ENT, Mouth: Mucous membranes moist Respiratory: There are no retractions, lungs are clear to auscultation Cardiovascular: Regular rate and rhythm Gastrointestinal: Abdomen is soft and non-tender, no masses, bowel sounds normal Neurological: A&O, moves all extremities Skin: Warm and dry, no rashes Musculoskeletal: Neck is supple non tender Extremities: symmetrical, full range of motion Psychiatric: No agitation (Mariela Al) Constitutional: Initial Vital Signs Temperature (C) 36.5 C 10/29/16 05:58 Heart Rate 73 10/29/16 05:58 Respiratory Rate 22 H 10/29/16 05:58 Blood Pressure 149/72 H 10/29/16 05:58 O2 Sat (%) 96 10/29/16 05:58 O2 Delivery Mode Nasal Cannula O2 (L/minute) 3 Allergies/Adverse Reactions: No Known Allergies Allergy (Verified 10/29/16 06:02) Home Medications: Medication Instructions Recorded AMLODIPINE BESYLATE/BENAZEPRIL 1 each PO HS 03/19/12 [Lotrel 10-20 mg] Atorvastatin Calcium [Lipitor 40 40 mg PO HS 03/19/12 mg (*)] Cholecalciferol (Vitamin D3) 5,000 unit PO DAILY 03/19/12 [Vitamin D3] Ibuprofen [Advil Liqui-Gels] 400 mg PO HS 03/19/12 C/E/Zn/Cu/OM3/DHA/EPA/LUT/ZEAX 1 each PO DAILY 10/26/16 [Preservision Areds 2 Softgel] Diclofenac Sodium [Voltaren Gel 2 g TP QID 10/26/16 (*)] Linagliptin [Tradjenta] 5 mg PO HS 10/26/16 Amiodarone HCl [Pacerone (*)] 400 mg PO BID #0 tab 10/28/16 Dabigatran Etexilate Mesyl 150 mg PO BID 10/29/16 [Pradaxa 150 MG (*)] glipiZIDE [Glipizide] 2.5 mg PO HS #30 tablet 10/30/16 glipiZIDE [Glipizide] 5 mg PO DAILY #30 tablet 10/30/16 Medical Decision Making <Mariela Al - Last Filed: 10/29/16 07:00> <Mona Cage - Last Filed: 10/31/16 22:37> - Diagnostics EKG Interpretation: EKG: Complete interpretation has been separately recorded in the [facility] archive. 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 Harry of Radiology. (Mariela Al) Study: Repeat CT of the Head w/o IV contrast Indication: Stroke alert Results: The results of the study are: No acute findings. The study was read by the radiologist, Dr. Vega. I viewed the images myself on the PACS system. (Mona Cage) ED Course/Re-evaluation: 5:50 a.m.- I met at the bedside to obtain report. The patient is now altered, her eyes are open and she is tracking, however she is not verbal. 7:00 a.m.- The patient is now more awake and alert talkative and is at her baseline according to her family at the bedside. She says that last night she got up to go to the bathroom, noticed her oxygen saturation was 98% and then got back into bed. She said she was touching the covers and that is the last thing he remembers until she saw many paramedics at her bedside. Her studies are so far unremarkable. I plan to admit her for observation given the unclear nature of this event. I suspect either syncope or seizure at this point. I have discussed the case with the hospitalist Dr. Ceron. (Mariela Al) 1205: RN altered me to patient's acute mental status change. On my evaluation, the patient is having mild word finding difficulties, questionable dysarthria, and slight difficulty following commands. It is difficult to assess the quality of her speech due to underlying accent. Stroke score of 1-2 on my evaluation. 1210: The patient was classified as a stroke alert by myself. [facility] neurology was called. The patient's repeat head CT is negative for acute findings. 1305: Patient has somewhat improved but has not yet returned to baseline per RN report. Still waiting for consult with [place] neurology. 1317: I consulted with Dr. Gaffney. Patient is not a tPa candidate secondary to Pradaxa. Patient admitted to inpatient bed. Neurology to follow. (Mona Cage) Differential Diagnosis: This is an 81-year-old female with atrial fibrillation, type 2 diabetes, who presents from to the emergency room from home after presumed seizure. She has no prior history of seizure activity. She is currently postictal. She was recently admitted for atrial fibrillation and was cardioverted, she is now on amiodarone and Pradaxa. Differential diagnosis includes head injury, syncope, hypertension, electrolyte disturbance, infection less likely given no fever. (Mariela Al) - Data Points Laboratory Results: Laboratory Results 10/29/16 05:55 10/29/16 05:55 Medications Given: Discontinued Medications Amiodarone HCl (Amiodarone Hcl) 400 mg PO BID [facility] Stop: 04/27/17 20:59 Last Admin: 10/30/16 08:26 Dose: 400 mg Amlodipine/Benazepril HCl (Lotrel 5-10 Mg Capsule) 2 each PO HS [facility] Stop: 04/28/17 08:59 Last Admin: 10/30/16 11:23 Dose: Not Given Amlodipine/Benazepril HCl (Lotrel 5-10 Mg Capsule) 2 each PO DAILY JORGE Stop: 04/28/17 08:59 Last Admin: 10/30/16 11:08 Dose: 2 each Atorvastatin Calcium (Lipitor) 40 mg PO HS [facility] Stop: 04/27/17 20:59 Last Admin: 10/29/16 20:21 Dose: 40 mg Cholecalciferol (Vitamin D) 5,000 units PO DAILY [facility] Stop: 04/28/17 08:59 Last Admin: 10/30/16 08:28 Dose: 5,000 units Dabigatran (Pradaxa) 150 mg PO BID [facility] Stop: 04/27/17 20:59 Last Admin: 10/30/16 08:26 Dose: 150 mg Glipizide (Glucotrol) 5 mg PO BID [facility] Stop: 04/27/17 20:59 Last Admin: 10/30/16 08:28 Dose: 5 mg Sodium Chloride (Ns) 1,000 mls @ 75 mls/hr IV ONCE ONE Stop: 10/29/16 20:59 Last Admin: 10/29/16 13:30 Dose: 1,000 mls Ibuprofen (Motrin) 400 mg PO HS [facility] Stop: 04/27/17 20:59 Last Admin: 10/29/16 20:21 Dose: 400 mg Insulin Human Lispro (Humalog Lispro) 0 unit SC TIDMEAL [facility] PRN Reason: Protocol Stop: 04/27/17 11:59 Last Admin: 10/30/16 12:53 Dose: 4 units Miscellaneous Medication (Diclofenac Sodium [Voltaren Gel (*)]) 0 g TP QID [facility] Stop: 04/27/17 20:59 Last Admin: 10/30/16 11:24 Dose: Not Given Miscellaneous Medication (Linagliptin [Tradjenta]) 0 mg PO HS JORGE Stop: 04/27/17 20:59 Last Admin: 10/29/16 22:10 Dose: Not Given Multivitamins/Minerals (Preservision Areds2 Formula) 1 each PO DAILY JORGE Stop: 04/27/17 16:29 Last Admin: 10/30/16 08:27 Dose: 1 each Departure <Mariela Al - Last Filed: 10/29/16 07:00> <Mona Cage - Last Filed: 10/31/16 22:37> - Departure Disposition: [facility] Inpatient Acute Clinical Impression: Altered mental status Qualifiers: Altered mental status type: unspecified Qualifier Code: (R41.82) Altered mental status, unspecified Transient cerebral ischemia Qualifiers: Transient cerebral ischemia type: other Qualifier Code: (G45.8) Other transient cerebral ischemic attacks and related syndromes Condition: Fair Report Scribed for: Mona Cage Report Scribed by: Kaylie Sarah Date of Report: 10/29/16 Time of Report: 13:05 <Mona Cage - Last Filed: 10/31/16 22:37>
[2016-10-29 06:05] LABS: % IMMATURE GRANULYOCYTES 0.4 % (0.0-1.1); ABSOLUTE IMMATURE GRANULOCYTES 0.03 10^3/uL (0.00-0.10); ADD DIFF? NO; ADD MORPH? NO; ADD SCAN? NO; ATYPICAL LYMPHOCYTE FLAG 0 (0-99); FRAGMENT RBC FLAG 0 (0-99); HEMATOCRIT 39.4 % (38.0-47.0); HEMOGLOBIN 13.1 g/dL (12.6-16.3); LEFT SHIFT FLG 0 (0-99); LIPEMIA HEMOLYSIS FLAG 80 (0-99); MEAN CELL HEMOGLOBIN 31.3 pg (27.9-34.1); MEAN CELL HEMOGLOBIN CONCENTR. 33.2 g/dL (32.4-36.7); MEAN CELL VOLUME 94.3 fL (81.5-99.8); MEAN PLATELET VOLUME 10.8 fL (8.7-11.7); PLATELET CLUMPS FLAG 0 (0-99); PLATELET COUNT 245 10^3/uL (150-400); RED BLOOD CELL COUNT 4.18 10^6/uL (4.18-5.33); RED CELL DISTRIBUTION WIDTH 16.1 % (11.5-15.2)
[2016-10-29 06:15] LABS: ALANINE AMINOTRANSFERASE 35 IU/L (9-52); ALBUMIN 3.9 g/dL (3.5-5.0); ALKALINE PHOSPHATASE 59 IU/L (38-126); ANION GAP 10 mEq/L (8-16); ASPARTATE AMINOTRANSFERASE 25 IU/L (14-46); CARBON DIOXIDE 22 mEq/l (22-31); CHLORIDE 112 mEq/L (97-110); CREATININE 1.3 mg/dL (0.6-1.0); GLOMERULAR FILTRATION RATE 39; GLUCOSE 104 mg/dL (70-100); POTASSIUM 3.9 mEq/L (3.5-5.2); SODIUM 144 mEq/L (134-144); TOTAL PROTEIN 6.9 g/dL (6.3-8.2)
--- NOTE | 2016-10-29 06:16 | CPEKG ---
Heart Rate: 78 RR Interval: 769 P-R Interval: 188 QRSD Interval: 120 QT Interval: 408 QTC Interval: 465 P Colon: 50 QRS Colon: 62 T Wave Colon: -17 EKG Severity - ABNORMAL ECG - EKG Impression: SINUS RHYTHM EKG Impression: NONSPECIFIC INTRAVENTRICULAR CONDUCTION DELAY Electronically Signed By: Mona Cage 29-Oct-2016 22:33:39
[2016-10-29] MEDS ORDERED: NS 1,000 ML IV ONE (07:40)
[2016-10-29] MEDS ORDERED: ONDANSETRON DISINTEGRATING 4 MG TAB PO PRN (07:40)
[2016-10-29] MEDS ORDERED: ONDANSETRON 4 MG/2 ML VIAL IVP PRN (07:40)
[2016-10-29] MEDS ORDERED: ACETAMINOPHEN 325 MG TAB PO PRN (07:40)
--- NOTE | 2016-10-29 07:45 | PDGENHP ---
History and Physical - Chief Complaint altered mental status - History of Present Illness Patient is 81/F with HTN, DM2 (on oral meds), osteoarthritis and hospitalization in [facility] for from 10/26-10/28 newly diagnosed Afib presents to the ED the day after discharge after an episode of altered mental status. In this recent hospitalization, patient underwent electric cardioversion for her new onset afib, was then started on amiodarone and pradaxa (only med changes made). She arrived home without incident, but apparently at around 430-5am, patient's looked over at her and found her with a fixed gaze, unresponsive. There were no obvious jerking movements, eye movements or incontinence, but he was unable to arouse her, so he called EMS. Per the ED's report, on EMS' arrival, patient appeared to be having a seizure, so Valium was given and she was transported to the ED. Patient reports remembering using the bathroom earlier in the night (3-4ish am), and then awoke to the paramedics in her room, feeling somewhat confused. She denies any new symptoms of fevers, chills, TAYLOR, dizziness , cp, palpitations, n/v/d or dysuria. She does report a cough that has been present since prior to her previous admission. In previous hospitalization, patient was also discharged with home O2, which was new for her. On arrival to the ED, patient was afebrile, hemodynamically stable and at baseline saturations. She was very lethargic from the dose of Valium she had received by EMS. CT head did not reveal any acute abnormalities and labs were largely unremarkable. Her mental status improved significantly over her ED course, and daughter reports she appeared to be at her baseline on my evaluation. She was admitted to the hospitalist service for further observation. History Information - Allergies/Home Medication List Allergies/Adverse Reactions: No Known Allergies Allergy (Verified 10/29/16 06:02) Home Medications: AMLODIPINE BESYLATE/BENAZEPRIL [Lotrel 10-20 mg] 1 each PO HS 03/19/12 [Last Taken 10/25/16] Atorvastatin Calcium [Lipitor 40 mg (*)] 40 mg PO HS 03/19/12 [Last Taken ] Cholecalciferol (Vitamin D3) [Vitamin D3] 5,000 unit PO HS 03/19/12 [Last Taken 10/25/16] Ibuprofen [Advil Liqui-Gels] 400 mg PO HS 03/19/12 [Last Taken 10/25/16] C/E/Zn/Cu/OM3/DHA/EPA/LUT/ZEAX [Preservision Areds 2 Softgel] 1 each PO HS 10/26 [Last Taken 10/25/16] Diclofenac Sodium [Voltaren Gel (*)] 2 g TP QID 10/26/16 [Last Taken Unknown] Linagliptin [Tradjenta] 5 mg PO HS 10/26/16 [Last Taken 10/25/16] glipiZIDE [Glipizide] 5 mg PO BID 10/26/16 [Last Taken 10/26/16 08:00] I have personally reviewed and updated: family history, medical history, social history, surgical history - Past Medical History atrial fibrillation, diabetes type 2, hypertension, hyperlipidemia - Surgical History Reports: appendectomy Additional surgical history: retinal surgery - Family History Positive for: non-pertinent - Social History Smoking Status: Never smoked Alcohol Use: None Drug Use: None Additional social history: Patient lives independently with her , independent in all ADLs. Has several children, 2 daughters live in the area. Review of Systems ROS: 10pt was reviewed & negative except for what was stated in HPI & below Physical Exam Temp Pulse Resp BP Pulse Ox 36.5 C 74 18 139/83 H 93 10/29/16 05:58 10/29/16 06:45 10/29/16 06:45 10/29/16 06:45 10/29/16 06:45 Constitutional: no apparent distress, appears nourished, not in pain Eyes: PERRL, anicteric sclera, EOMI Ears, Nose, Mouth, Throat: moist mucous membranes, hearing normal, ears appear normal, no oral mucosal ulcers Cardiovascular: regular rate and rhythym, no murmur, rub, or gallop, pulses symmetric bilaterally, No JVD, No edema Peripheral Pulses: 2+: dorsalis-pedis (R), dorsalis-pedis (L) Respiratory: no respiratory distress, no rales or rhonchi, clear to auscultation Gastrointestinal: normoactive bowel sounds, soft, non-tender abdomen, no palpable masses Genitourinary: no bladder fullness, no bladder tenderness Skin: warm, normal color, no rashes or abrasions, no fluctuance, No mottled Musculoskeletal: full muscle strength, no muscle tenderness, normal joint ROM, no joint effusions Neurologic: AAOx3, sensation intact bilaterally, CN II-XII Intact, No weakness, No numbness, No pronator drift, No facial droop Psychiatric: interacting appropriately, not anxious, not encephalopathic, thought process linear Lab Data & Imaging Review 10/29/16 05:55 10/29/16 05:55 WBC 7.63 10^3/uL (3.80-9.50) 10/29/16 05:55 RBC 4.18 10^6/uL (4.18-5.33) 10/29/16 05:55 Hgb 13.1 g/dL (12.6-16.3) 10/29/16 05:55 Hct 39.4 % (38.0-47.0) 10/29/16 05:55 MCV 94.3 fL (81.5-99.8) 10/29/16 05:55 MCH 31.3 pg (27.9-34.1) 10/29/16 05:55 MCHC 33.2 g/dL (32.4-36.7) 10/29/16 05:55 RDW 16.1 % (11.5-15.2) H 10/29/16 05:55 Plt Count 245 10^3/uL (150-400) 10/29/16 05:55 MPV 10.8 fL (8.7-11.7) 10/29/16 05:55 Neut % (Auto) 57.6 % (39.3-74.2) 10/29/16 05:55 Lymph % (Auto) 25.8 % (15.0-45.0) 10/29/16 05:55 [place]urel % (Auto) 10.6 % (4.5-13.0) 10/29/16 05:55 Eos % (Auto) 5.1 % (0.6-7.6) 10/29/16 05:55 Baso % (Auto) 0.5 % (0.3-1.7) 10/29/16 05:55 Nucleat RBC Rel Count 0.0 % (0.0-0.2) 10/29/16 05:55 Absolute Neuts (auto) 4.39 10^3/uL (1.70-6.50) 10/29/16 05:55 Absolute Lymphs (auto) 1.97 10^3/uL (1.00-3.00) 10/29/16 05:55 Absolute Monos (auto) 0.81 10^3/uL (0.30-0.80) H 10/29/16 05:55 Absolute Eos (auto) 0.39 10^3/uL (0.03-0.40) 10/29/16 05:55 Absolute Basos (auto) 0.04 10^3/uL (0.02-0.10) 10/29/16 05:55 Absolute Nucleated RBC 0.00 10^3/uL (0-0.01) 10/29/16 05:55 Immature Gran % 0.4 % (0.0-1.1) 10/29/16 05:55 Immature Gran # 0.03 10^3/uL (0.00-0.10) 10/29/16 05:55 Sodium 144 mEq/L (134-144) 10/29/16 05:55 Potassium 3.9 mEq/L (3.5-5.2) 10/29/16 05:55 Chloride 112 mEq/L (97-110) H 10/29/16 05:55 Carbon Dioxide 22 mEq/l (22-31) 10/29/16 05:55 Anion Gap 10 mEq/L (8-16) 10/29/16 05:55 BUN 23 mg/dL (7-23) 10/29/16 05:55 Creatinine 1.3 mg/dL (0.6-1.0) H 10/29/16 05:55 Estimated GFR 39 10/29/16 05:55 Glucose 104 mg/dL (70-100) H 10/29/16 05:55 Calcium 9.0 mg/dL (8.5-10.4) 10/29/16 05:55 Total Bilirubin 1.0 mg/dL (0.1-1.4) 10/29/16 05:55 AST 25 IU/L (14-46) 10/29/16 05:55 ALT 35 IU/L (9-52) 10/29/16 05:55 Alkaline Phosphatase 59 IU/L (38-126) 10/29/16 05:55 Total Protein 6.9 g/dL (6.3-8.2) 10/29/16 05:55 Albumin 3.9 g/dL (3.5-5.0) 10/29/16 05:55 Visualized and Interpreted imaging results: Yes Interpretation: CT head: no acute abnormalities Visualized and Interpreted EKG results: Yes EKG Interpretation: Positive for: normal sinsus rhythm (no st/t wave changes) Assessment & Plan Assessment: Patient is an 81/F with HTN, HLD, DM2 and newly diagnosed Afib who presents to the ED with an episode of altered mental status, etiology unclear syncope vs seizure. Mental status appears to be back at baseline on my evaluation. Plan: # acute encephalopathy Patient's description of the event is concerning for either a prolonged syncopal episode vs nonconvulsive seizure activity. EMS's evaluation prompted benzo administration. Patient denied any cardiac symptoms. It does not appear that either of her newly added medications would lower seizure threshold. Will r /o infection with UA and CXR, give IVF hydration, trend troponin and observe. # afib Patient in NSR, VS stable. Will continue all home meds. # DM2 Last FS recorded was >200, but normal on admission bmp. Will monitor FS and place on sliding scale coverage. # HTN BP stable. Cont home meds. # dispo: admit to observation status # Gen Cardiac/diabetic diet DVT ppx: pradaxa Full code
[2016-10-29] MEDS ORDERED: D50W 25 GM/50 ML SYR IVP PRN (08:08)
--- NOTE | 2016-10-29 09:16 | DX ---
Portable Chest, Single View October 29, 2016, 8:12 a.m. Indication: Syncope. Comparison: Two-view chest dated October 26, 2016. Findings: Worsening bibasilar opacities and peribronchial thickening. Cardiomegaly unchanged. Pulmona ry vascularity within normal limits. No effusion. Impression: Worsening bibasilar atelectasis and borderline interstitial edema. Cardiomegaly. No keisha k failure.
[2016-10-29 10:13] LABS: TROPONIN I 0.045 ng/mL (0-0.034)
[2016-10-29] MEDS ORDERED: IOPAMIDOL (ISOVUE 370) 100 ML BTL IV ONE (12:13)
--- NOTE | 2016-10-29 12:42 | CT ---
CT Head (Without Contrast) 12:25 p.m. Indication: Word finding difficulty. Technique: Standard noncontrast head CT protocol utilizing 5 mm thick collimated slices and field of view of 23 cm. Dose reduction techniques were utilized. Comparison: CT head dated October 29, 2016, at 6:45 a.m. Findings: No acute change since five hours prior. No intracranial hemorrhage, swelling, or mass effec t has developed. 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 No evidence of acute cortical ischemia. Minimal low attenuation periventricular w jose matter disease in the frontal lobes is unchanged. Impression: 1. Negative. No acute intracranial hemorrhage or evidence of acute ischemia. 2. No change since five hours prior. 3. Old right parietotemporal encephalomalacia and mild atrophy are unchanged. Comment: Case was discussed with Dr. Cage at 12:29 p.m. October 29, 2016
[2016-10-29] MEDS: INSULIN LISPRO 100 UNIT/ML SC SCH ×2 (14:52→16:18)
--- NOTE | 2016-10-29 16:20 | CT ---
CT Head, Without Contrast History: New seizure. Comparison: None. Technique: Standard noncontrast head CT protocol utilizing axial images acquired through the [facility]. Images were reconstructed down to 1.25-mm slice thickness as well. Radiation dose technique was u tilized. Findings: There is encephalomalacia in the right parietal lobe extending partially into the right tem poral lobe compatible with sequela from an old remote infarct. No evidence for acute infarct, intracr anial hemorrhage, or mass. There is generalized prominence of the ventricles, sulci, and cisterns. No evidence for an extraaxial fluid collection. No evidence for skull fracture. No evidence for an air- fluid level in the paranasal sinuses. 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 No evidence for acute infarct or intracranial hemorrhage. Mild generalized cerebral atrophy. Results discussed with Dr. Mariela Al at 0656 hours on 29 October 2016.
[2016-10-29] MEDS: PRESERVISION AREDS2 FORMULA EYE VIT 1 EACH PO SCH (17:48)
[2016-10-29] MEDS ORDERED: GUAIFENESIN/DM 10 ML UDCUP PO PRN (18:31)
--- NOTE | 2016-10-29 18:33 | HOSPPROG ---
Hospitalist Progress Note Assessment/Plan: epsiode this AM reasonably attributable to hypoglycemia (53), especially in light of otherwise neg workup add cough syrup per family request Objective: Vital Signs Temp Pulse Resp BP Pulse Ox 36.9 C 73 18 146/76 H 92 10/29/16 16:00 10/29/16 16:00 10/29/16 16:00 10/29/16 16:00 10/29/16 16:00 10/28/16 10/29/16 10/30/16 05:59 05:59 05:59 Intake Total 1100 Balance 1100 ICD10 Worksheet Patient Problems: Problems Problem Status Diagnosed Altered mental status Acute Atrial fibrillation with rapid ventricular response Acute
[2016-10-29] MEDS: DABIGATRAN ETEXILATE MESYL 150 MG CAP PO SCH (20:16)
[2016-10-29] MEDS: AMIODARONE HCL 200 MG TAB PO SCH (20:17)
[2016-10-29] MEDS: glipiZIDE 5 MG TAB PO SCH (20:18)
[2016-10-29] MEDS ORDERED: IBUPROFEN 200 MG TAB PO SCH (21:00)
[2016-10-29] MEDS ORDERED: ATORVASTATIN CALCIUM 40 MG TAB PO SCH (21:00)
[2016-10-29] MEDS: DICLOFENAC SODIUM TP SCH (22:10)
[2016-10-30] MEDS: DICLOFENAC SODIUM TP SCH ×2 (05:36→11:24)
[2016-10-30 06:14] LABS: COLOR YELLOW; LEUKOCYTE ESTERASE,URINE 2+ (NEGATIVE); NITRITE,URINE NEGATIVE (NEGATIVE)
[2016-10-30 06:22] LABS: BACTERIA TRACE /hpf (NONE SEEN); MUCUS TRACE /lpf (NONE-1+); WBC,URINE 50-182 /hpf (0-3)
[2016-10-30] MEDS: DABIGATRAN ETEXILATE MESYL 150 MG CAP PO SCH (08:26)
[2016-10-30] MEDS: AMIODARONE HCL 200 MG TAB PO SCH (08:26)
[2016-10-30] MEDS: PRESERVISION AREDS2 FORMULA EYE VIT 1 EACH PO SCH (08:27)
[2016-10-30] MEDS: glipiZIDE 5 MG TAB PO SCH (08:28)
[2016-10-30] MEDS: INSULIN LISPRO 100 UNIT/ML SC SCH ×2 (08:30→12:53)
[2016-10-30 08:33] VITALS: RESP 20
[2016-10-30] MEDS ORDERED: NON-FORMULARY NEW DRUG (Cholecalciferol (Vitamin D3) [Vitamin D3] 5,000 UNIT) PO SCH (09:00)
[2016-10-30] MEDS ORDERED: AMLODIPINE BESYLATE 5/BENAZEPRIL 10MG 1 EACH CAP PO SCH ×2 (09:00→11:30)
[2016-10-30] MEDS ORDERED: CHOLECALCIFEROL VIT D3 1,000 UNITS TAB PO SCH (09:00)
[2016-10-30 11:09] VITALS: BP 128/70
--- NOTE | 2016-10-30 11:44 | HOSPPROG ---
Hospitalist Progress Note Assessment/Plan: 81 yo F w recent dx AF s/p cardioversion here w w episode of decreased responsiveness episode: hypoglycemia resolved decrease pm glipizide to 2.5 AF: sinus pyuria: no sx no abx dispo: home today > 30 minutes Subjective: mildly hypoglycemic this AM. questions answered Objective: Vital Signs Temp Pulse Resp BP Pulse Ox 36.4 C 62 20 128/70 H 93 10/30/16 08:00 10/30/16 08:00 10/30/16 08:00 10/30/16 11:08 10/30/16 08:00 10/29/16 10/30/16 10/31/16 05:59 05:59 05:59 Intake Total 1850 Output Total 100 Balance 1850 -100 - Physical Exam Constitutional: no apparent distress, not in pain Eyes: PERRL, anicteric sclera Ears, Nose, Mouth, Throat: moist mucous membranes, hearing normal Cardiovascular: regular rate and rhythym, no murmur, rub, or gallop Respiratory: no respiratory distress, no rales or rhonchi Gastrointestinal: normoactive bowel sounds, soft, non-tender abdomen Genitourinary: No serrano in urethra Skin: warm, normal color Musculoskeletal: full muscle strength, no joint effusions Neurologic: AAOx3 ICD10 Worksheet Patient Problems: Problems Problem Status Diagnosed Altered mental status Acute Atrial fibrillation with rapid ventricular response Acute
[2016-10-30 11:59] VITALS: PULSE 60; TEMP 98; O2SAT 97
--- NOTE | 2016-10-30 12:05 | GDS ---
[f rep st] DISCHARGE SUMMARY DISCHARGE DIAGNOSES: 1. Symptomatic hypoglycemia with episode of unresponsiveness. 2. Recent admission for atrial fibrillation. 3. Hypoxia. 4. Diabetes with hypoglycemia. 5. Pyuria without urinary tract infection symptoms. HOSPITAL COURSE: Please see admission history and physical by Dr. Milady Ceron. Patient ham willett with an episode of unresponsiveness. Admission glucose was 53. She had received Valium for con cern for seizure. She head neuroimaging, which was unremarkable. She has no previous history of sei zure. Does not drink alcohol. Has not had a head injury. This is not felt to be the likely diagnos is. She had no further episodes. On the second day in the hospital, she had an a.m. glucose of 75, which is relatively low for her. Most recent hemoglobin A1c was 7.8, which is probably an appropriate goal for someone who is 81 years old. Her p.m. glipizide was decreased to 2.5 mg. Her 5 a.m. glipizide remains the same. She continues he r Tradjenta. Other medications remain unchanged. Notably new medications from her last admission are amiodarone taper and Pradaxa. /[id number]/MODL
== END 2016-10-30 13:22 | disposition home or self-care (01) ==
LOC: EDUNIT# → F3N 13:56
PROVIDERS: ADMIT Internal Medicine; ATTEND Internal Medicine
DX: E11.65 Type 2 diabetes mellitus with hyperglycemia (principal); R41.82 Altered mental status, unspecified; I48.91 Unspecified atrial fibrillation; G93.40 Encephalopathy, unspecified; R09.02 Hypoxemia; N39.0 Urinary tract infection, site not specified; I10 Essential (primary) hypertension; E78.5 Hyperlipidemia, unspecified; Z79.01 Long term (current) use of anticoagulants
CPT/HCPCS: 70450; 71010; 93005; G0378; J1815; 82947-QW; Q9967

== ENCOUNTER 2016-11-04 12:26 | Day surgery (SDC) | payer OTHER, MEDICARE ==
[2016-11-04] MEDS ORDERED: PROPOFOL 200 MG/20 ML VIAL IVP ONE (12:38)
[2016-11-04] MEDS ORDERED: fentaNYL 100 MCG/2 ML INJ IVP ONE (12:38)
[2016-11-04] MEDS ORDERED: MIDAZOLAM 2 MG/2 ML VIAL IVP ONE (12:38)
[2016-11-04] MEDS ORDERED: NS 500 ML IV ONE (12:38)
--- NOTE | 2016-11-04 13:03 | CPEKG ---
Heart Rate: 111 RR Interval: 541 QRSD Interval: 130 QT Interval: 364 QTC Interval: 495 QRS [place]: 7 T Wave [place]: 258 EKG Severity - ABNORMAL ECG - EKG Impression: ATRIAL FIBRILLATION EKG Impression: NONSPECIFIC INTRAVENTRICULAR CONDUCTION DELAY Electronically Signed By: Caryl Leonard 04-Nov-2016 17:07:14
[2016-11-04 13:30] LABS: INR 3.17 (0.83-1.16)
[2016-11-04 13:31] LABS: APTT 85.1 SEC (23.0-38.0)
[2016-11-04 13:44] LABS: ANION GAP 12 mEq/L (8-16); CALCIUM 8.8 mg/dL (8.5-10.4); CARBON DIOXIDE 24 mEq/l (22-31); CHLORIDE 107 mEq/L (97-110); CREATININE 1.4 mg/dL (0.6-1.0); GLOMERULAR FILTRATION RATE 36; GLUCOSE 186 mg/dL (70-100); MAGNESIUM 1.3 mg/dL (1.6-2.3); POTASSIUM 4.3 mEq/L (3.5-5.2); SODIUM 143 mEq/L (134-144)
[2016-11-04] MEDS ORDERED: AMIODARONE HCL 300 MG in D5W 100 ML IV ONE (14:12)
--- NOTE | 2016-11-04 14:25 | CPEKG ---
Heart Rate: 47 RR Interval: 1277 P-R Interval: 208 QRSD Interval: 114 QT Interval: 444 QTC Interval: 393 P [place]: 48 QRS [place]: -2 T Wave [place]: 16 EKG Severity - ABNORMAL ECG - EKG Impression: SINUS BRADYCARDIA EKG Impression: INCOMPLETE LEFT BUNDLE BRANCH BLOCK EKG Impression: LOW VOLTAGE IN FRONTAL LEADS EKG Impression: BORDERLINE R WAVE PROGRESSION, ANTERIOR LEADS Electronically Signed By: Caryl Leonard 04-Nov-2016 17:07:21
--- NOTE | 2016-11-04 14:27 | SUROPNOTE ---
[facility] Operative Report - Surgery Date of procedure: 11/04/16 Indication: This patient is an 81 year old woman with paroxysmal atrial fibrillation, s/p RUSSELL and successful cardioversion 10/27/16. The patient is currently on 400mg Amiodarone BID and anticoagulated with Pradaxa. She was found to be back in atrial fibrillation with rapid ventricular rate 11/02/16. She was placed on low dose metoprolol, with plan for cardioversion today. She has been compliant with her Pradaxa. Her last dose was today at 8am. Procedures performed: 1. Cardioversion Description of procedure: Risks, benefits, and alternatives were discussed. Informed consent was obtained. Anesthesia was performed by Dr. Perkins with propofol. Patient received a 200 joule biphasic synchronized shock using hands-off pads converting to sinus rhythm. Impression: 1. Successful cardioversion of atrial fibrillation to normal sinus rhythm. Plan: 1. 300mg IV Amiodarone bolus in the CVC today. 2. Discontinue the Metoprolol. 3. Continue 400mg Amiodarone twice daily. 4. Follow up with Del Jacome at the [facility] on , 11/10, at 4pm. Portions of this report were documented by a medical reimbursement specialist. I have reviewed this report and agree with the documentation. Report scribed for Dr. Pavan Yeager. Report scribed by Kaylie Sarah.
== END 2016-11-04 15:46 | disposition home or self-care (01) ==
LOC: FCATH 12:26
PROVIDERS: ATTEND Internal Medicine Interventional Cardiology
PROC: 5A2204Z Restoration of Cardiac Rhythm, Single (ICD-10-PCS; principal; 2016-11-04)
DX: I48.0 Paroxysmal atrial fibrillation (principal); I10 Essential (primary) hypertension; E78.4 Other hyperlipidemia; E11.9 Type 2 diabetes mellitus without complications; I44.7 Left bundle-branch block, unspecified; E66.9 Obesity, unspecified; Z99.81 Dependence on supplemental oxygen; Z68.32 Body mass index [BMI] 32.0-32.9, adult; Z79.01 Long term (current) use of anticoagulants
CPT/HCPCS: J0282; J2704

== ENCOUNTER → 2017-11-28 | Outpatient (CLI) | payer OTHER, MEDICARE | LOC: BMCIMAGING 12:23 | PROVIDERS: ATTEND Internal Medicine Endocrinology, Diabetes & Metabolism | DX: E04.1 Nontoxic single thyroid nodule (principal); A18 Tuberculosis of other organs; I65.23 Occlusion and stenosis of bilateral carotid arteries | CPT/HCPCS: 76536-PO ==